=== PATIENT | female | born 1965 | race Caucasian/White ===

== ENCOUNTER 2018-03-18 22:24 | Emergency (ER) | payer SELFPAY ==
[~2018-03-18] VITALS: Ht 160 cm; Wt 54.0 kg
[2018-03-18 22:24] VITALS: BP 124/66
[~2018-03-18 22:24] MED LIST: NO MEDS
--- NOTE | 2018-03-18 22:34 | NUR ---
GAVE REPORT TO JR SUERO
--- NOTE | 2018-03-18 22:34 | NUR ---
PT AMBULATED TO BED 1
--- NOTE | 2018-03-18 22:35 | NUR ---
52YO F TO ER WITH C/O RIGHT RIB PAIN X1WK S/P FALL. PT STATES THAT SHE TRIPED AND FELL ON TO RIGHT SIDE. PT DENIES LOC OR HITTING HEAD PT STATES THAT SHE HAS BEEN TAKING IBUPROFEN FOR THE PAIN Q4-6 HRS. PT STATES TENDER TO TOUCH RIBS AND RIGHT ABD. LAST BM WAS 03/15/18. DENIES N/V/D, ; SKIN IS PINK/WARM/DRY; AAOX4 WITH EVEN AND STEADY GAIT; LUNGS CLEAR BL; HR EVEN AND HEAVY; PT DENIES ANY FEVER, CP, SOB, OR COUGH AT THIS TIME; PATIENT STATES PAIN OF 6/10 AT THIS TIME; VSS; PATIENT POSITIONED FOR COMFORT; HOB ELEVATED; BEDRAILS UP X2; BED DOWN. ER MD MADE AWARE OF PT STATUS.
--- NOTE | 2018-03-18 23:04 | NUR ---
XRAY AT BED SIDE
--- NOTE | 2018-03-18 23:39 | NUR ---
Patient being evaluated by physician at bedside.
[2018-03-19 00:05] VITALS: BP 114/81
--- NOTE | 2018-03-19 00:05 | NUR ---
Patient discharged with v/s stable. Written and verbal after care instructions given and explained. Patient alert, oriented and verbalized understanding of instructions. Ambulatory with steady gait. All questions addressed prior to discharge. ID band removed. Patient advised to follow up with PMD. Rx of IBUPROFEN 600MG given. Patient educated on indication of medication including possible reaction and side effects. Opportunity to ask questions provided and answered.
== END 2018-03-19 00:05 | disposition home or self-care (01) ==
LOC: MED 22:24
DX: S20.20XA Contusion of thorax, unspecified, initial encounter (principal); W19.XXXA Unspecified fall, initial encounter; Y93.01 Activity, walking, marching and hiking; Y92.480 Sidewalk as the place of occurrence of the external cause; Y99.8 Other external cause status
CPT/HCPCS: 71045; 81002; 81025; 99283; Q0092

== ENCOUNTER 2022-08-18 22:13 | Observation (INO) | payer OTHER ==
[~2022-08-18] VITALS: Ht 152.4 cm; Wt 60.3 kg
[~2022-08-18 22:13] MED LIST changes: -NO MEDS; +PANT40EC56 PO
[2022-08-18 22:31] VITALS: BP 141/74
--- NOTE | 2022-08-18 22:40 | NUR ---
PT TAKEN TO BED 1
--- NOTE | 2022-08-18 23:10 | NUR ---
Patient lying in bed, A/Ox4, chest rise and fall symmetrical, patient on monitor. Patient stated pain is "3/10 tolerable."
[2022-08-18 23:18] LABS: BASOPHILS # (AUTO) 0.1 K/uL (0.00-0.22); BASOPHILS % (AUTO) 1.2 % (0.0-2.0); EOSINOPHILS # (AUTO) 0.1 K/uL (0-0.4); EOSINOPHILS % (AUTO) 2.1 % (0.0-4.0); HEMOGLOBIN 7.7 g/dL (12.0-16.0); LYMPHOCYTES # (AUTO) 2.3 K/uL (2.5-16.5); LYMPHOCYTES % (AUTO) 39.3 % (20.5-51.1); MEAN CORPUSCULAR HEMOGLOBIN 25 pg (27-31); MEAN CORPUSCULAR HGB CONC 32 g/dL (33-37); MEAN CORPUSCULAR VOLUME 77.7 fL (80-94); MONOCYTES # (AUTO) 0.8 K/uL (0.8-1.0); MONOCYTES % (AUTO) 14.4 % (1.7-9.3); NEUTROPHILS # (AUTO) 2.5 K/uL (1.8-7.7); PLATELET COUNT (AUTO) 127 K/uL (140-450); RED BLOOD CELL COUNT(AUTO) 3.09 MIL/uL (4.20-5.40); RED CELL DISTRIBUTION WIDTH 20.4 % (11.6-13.7); WHITE BLOOD COUNT (AUTO) 5.9 K/uL (4.8-10.8)
[2022-08-18 23:49] LABS: ALBUMIN 2.4 g/dL (3.4-5.0); ANION GAP 12.4 (8-16); ASPARTATE AMINOTRANSFERASE 67 U/L (15-37); CARBON DIOXIDE 23.7 mmol/L (21-32); CHLORIDE 109 mmol/L (98-107); CREATININE 0.9 mg/dL (0.6-1.3); GFR ARICAN-AMERICAN 84 mL/min (>90); GLUCOSE 102 mg/dL (74-106); POTASSIUM 4.1 mmol/L (3.5-5.1); SODIUM SERUM 141 mmol/L (136-145); TOTAL BILIRUBIN 0.3 mg/dL (0.0-1.0); UREA NITROGEN, BLOOD 11 mg/dL (7-18)
--- NOTE | 2022-08-19 01:13 | NUR ---
Patient lying in bed, A/Ox4, chest rise and fall symmetrical, patient on monitor. Patient stated pain is "2/10 tolerable."
--- NOTE | 2022-08-19 03:12 | NUR ---
Denice SUERO, case fitter for [facility], called requesting admission information, requesting to know if patient is being admitted Observation or inpatent Telemetry. Information given to Denice SUERO, case fitter for [facility]. Denice SUERO, case fitter for [facility] verbalized understanding, no further questions.
--- NOTE | 2022-08-19 03:23 | NUR ---
Patient lying in bed, A/Ox4, chest rise and fall symmetrical, patient on monitor. Patient stated pain is "3/10 tolerable."
[2022-08-19] MEDS ORDERED: HYDROcodone/APAP 5/325 MG 1 TAB TAB PO PRN (03:40)
[2022-08-19] MEDS ORDERED: ONDANSETRON 4 MG/2 ML VIAL IVP PRN (03:40)
[2022-08-19] MEDS ORDERED: KCL 20 MEQ/WATER INJ PREMIX 200 ML IV PRN (03:40)
[2022-08-19] MEDS ORDERED: MORPHINE SULFATE 4 MG/ML SYR IVP PRN (03:40)
[2022-08-19] MEDS ORDERED: ACETAMINOPHEN 325 MG TAB PO PRN (03:40)
[2022-08-19] MEDS ORDERED: MAG SULF 2000 MG/WATER PREMIX 50 ML IV PRN (03:40)
[2022-08-19] MEDS ORDERED: MAGNESIUM OXIDE 400 MG TAB PO PRN (03:40)
[2022-08-19] MEDS ORDERED: POTASSIUM CHLORIDE 10 MEQ TABER PO PRN (03:40)
--- NOTE | 2022-08-19 05:45 | NUR ---
At 0540 patient was quietly lying in bed, A/Ox4, chest rise and fall symmetrical, patient is on monitor. Patient stated pain is "6/10." Patient requesting pain medication. [place] given to patient. No adverse reaction to pain medications.
--- NOTE | 2022-08-19 05:50 | NUR ---
RECEIVED PATIENT FROM ER , CAME IN VIA RNEY. AWAKE, ALERT AND VERBALLY RESPONSIVE. FEMALE, 56 YRS OLD PT CAME IN WITH CHIEF COMPLAINTS OF DIFFICULTY OF BREATHING, WEAKNESS AND DARK STOOL X 3 DAYS. PT WITH DIAGNOSIS OF ANEMIA, GI BLEEDS AND WEAKNESS. PT HAS NO ALLERGY AND SHE IS A FULL CODE. PT IS ABLE TO AMBULATES FROM [facility] TO HER BED OR RESTROOM INDEPENDENTLY. PT IS AAO X 4 AND IS A MEDSURG. SHE IS USING 2 LPM. IV SALINE LOCK AT LEFT AC 20G. SKIN INTACT AND WARM. DENIES OF NAUSEA OR VOMITING AT THIS TIME. SHE RECEIVES NORCO 5/325 AT 05:44 AT ER PRIOR TO COMING TO [facility]. CONTINUE TO MONITOR.
--- NOTE | 2022-08-19 05:55 | NUR ---
Patient admitted to care of Chriss SUERO. Admited to Telemetry. Safely transferred to room 120B. Belongings list completed. Bedside report given to Chriss SUERO, including; Alert and Orientation, Patient History/chief complaint/admitting diagnosis, Labs results, X-ray results, medications given, vital signs, and all other report information given. Chriss RN verbalized understanding of report, no further questions. Patient safely transferred to bed. Patient is A/Ox4, on 2L NC at 98% Oxygen saturation chest rise and fall symmetrical, no c/o pain or s/s of distress, 20G IV in LAC patent and saline flushed, patient on cardiac cath lab technologist, fall risk armband on, 3 bed rails up, and belongings accounted for and at patient's bedside.
[2022-08-19 07:00] VITALS: BP_SYST 113; BP_SYST 118; BP_DIAS 68; BP_DIAS 75
--- NOTE | 2022-08-19 07:20 | NUR ---
RECEIVED PT FROM NIGHT RN, PT IS AWAKE , ALERT AND ORIENTED, LYING ON THE BED WITH SIDE RAILS UP AND CALL LIGHT WITHIN REACH, IV LINE NOTED ON THE LEFT AC G. 20 ON SALINE LOCK, PT IS ON ROOM AIR, NO SIGN OF DISTRESS NOTED AND WILL CONTINUE TO MONITOR PT.
[2022-08-19 08:00] VITALS: BP 123/83
[2022-08-19 12:00] VITALS: BP 106/60
--- NOTE | 2022-08-19 13:43 | NUR ---
PATIENT HAS BEEN SCREENED AND CATEGORIZED LOW NUTRITION RISK. PATIENT WILL BE SEEN WITHIN 7 DAYS OF ADMISSION. 08/26/22 REVIEWED BY MIRIAM REYNOLDS RD
--- NOTE | 2022-08-19 15:30 | NUR ---
PT IS OFF THE ROOM NOW FOR A CHEST X-RAY.
[2022-08-19 16:00] VITALS: BP 119/70
--- NOTE | 2022-08-19 16:13 | NUR ---
PT WAS INSTRUCTED TO NOTIFY RN IS SHE URINATE BECAUSE MD ORDER FOR URINALYSIS AND URINE DRUG SCREEN AND PT VERBALIZED UNDERSTANDING.
[2022-08-19 17:52] LABS: APPEARANCE,URINE CLEAR (CLEAR); BILIRUBIN,URINE NEGATIVE (NEGATIVE); BLOOD, URINE NEGATIVE (NEGATIVE); COLOR,URINE YELLOW (YELLOW); LEUKOCYTE ESTERASE ,URINE 1+ (NEGATIVE); NITRITE, URINE NEGATIVE (NEGATIVE); UGLUCOSE NEGATIVE (NEGATIVE)
[2022-08-19 18:04] LABS: BARBITURATE, URINE NEGATIVE ng/ml (NEG <=200); BENZODIAZEPINE, URINE NEGATIVE ng/mL (NEG <=200); CANNABINOID, URINE NEGATIVE ng/mL (NEG <=50); COCAINE, URINE NEGATIVE ng/mL (NEG <=300); PHENCYCLIDINE SCREEN,URINE NEGATIVE ng/mL (NEG <=25)
[2022-08-19 18:05] LABS: OPIATE, URINE POSITIVE ng/mL (NEG <=2000)
[2022-08-19 18:09] LABS: OTHER CASTS, URINE None Seen /LPF (None Seen); RBC,URINE 0-5 /HPF (0-5)
--- NOTE | 2022-08-19 19:18 | NUR ---
ENDORSED PT TO NIGHT RN FOR CONTINUITY OF CARE, PT IS EATING DINNER WITH FRIEND ON THE BEDSIDE, PT IS STABLE AT THIS TIME.
--- NOTE | 2022-08-19 19:41 | NUR ---
RE VISIT PT - RT AT BEDSIDE - RT INCREASE THE O2 TO 4LPM/NC - O2 SAT 96 % , WILL CONT. TO MONITOR .
[2022-08-19 20:00] VITALS: BP 90/62
--- NOTE | 2022-08-19 21:56 | NUR ---
BP RE CHECK 90/62 HR 98 - WILL RETURN LASIX TO P[facility]XIS. WILL CONT. TO MONITOR . CALL LIGHT WITHIN REACH .
[2022-08-19] MEDS: FUROSEMIDE 20 MG/2 ML VIAL IVP SCH (22:00)
[2022-08-20] VITALS: BP 100/65
--- NOTE | 2022-08-20 | NUR ---
ROUNDS , NO S/SX OF ACUTE DISTRESS NOTED , BP RE CHECK 112/64 . WILL CONT. TO MONITOR , CALL LIGHT WITHIN REACH .
[2022-08-20 04:00] VITALS: BP 114/62
[2022-08-20 05:45] LABS: BASOPHILS % (AUTO) 0.9 % (0.0-2.0); EOSINOPHILS # (AUTO) 0.1 K/uL (0-0.4); EOSINOPHILS % (AUTO) 2.1 % (0.0-4.0); HEMATOCRIT 25.5 % (36-48); HEMOGLOBIN 7.9 g/dL (12.0-16.0); LYMPHOCYTES # (AUTO) 2.1 K/uL (2.5-16.5); LYMPHOCYTES % (AUTO) 43.6 % (20.5-51.1); MEAN CORPUSCULAR HEMOGLOBIN 25 pg (27-31); MEAN CORPUSCULAR HGB CONC 31 g/dL (33-37); MEAN CORPUSCULAR VOLUME 79.1 fL (80-94); MONOCYTES # (AUTO) 0.5 K/uL (0.8-1.0); MONOCYTES % (AUTO) 9.8 % (1.7-9.3); NEUTROPHILS # (AUTO) 2.1 K/uL (1.8-7.7); NEUTROPHILS % (AUTO) 43.6 % (42.2-75.2); PLATELET COUNT (AUTO) 121 K/uL (140-450); RED BLOOD CELL COUNT(AUTO) 3.22 MIL/uL (4.20-5.40); RED CELL DISTRIBUTION WIDTH 20.3 % (11.6-13.7); WHITE BLOOD COUNT (AUTO) 4.8 K/uL (4.8-10.8)
[2022-08-20 05:57] LABS: MAGNESIUM 2.1 mg/dL (1.8-2.4); PHOSPHORUS 3.9 mg/dL (2.5-4.9)
[2022-08-20 06:01] LABS: ANION GAP 10.2 (8-16); CARBON DIOXIDE 24.9 mmol/L (21-32); CREATININE 0.9 mg/dL (0.6-1.3); POTASSIUM 4.1 mmol/L (3.5-5.1)
--- NOTE | 2022-08-20 07:08 | NUR ---
RELAYED THE RESULT OF UDS AND URINALYSIS TO DR. KATE LUTHER .
--- NOTE | 2022-08-20 07:12 | NUR ---
ENDORSED FOR CONT. OF CARE , BP 114/ 65 , ENDORSED TO RODRIGO SHE HAVE TO FF UP THE FURTHER ORDERS FROM DR. AUGUSTIN , I RELAYED THE U/A AND UDS RESULT , RODRIGO VERBALIZES UNDERSTANDING .
[2022-08-20 08:00] VITALS: BP 120/67
--- NOTE | 2022-08-20 08:10 | NUR ---
SATURATION 97% ON 4L TITRATED TO 3L. A HERNANDEZ SRT
[2022-08-20] MEDS: FUROSEMIDE 20 MG/2 ML VIAL IVP SCH (08:35)
[2022-08-20] MEDS ORDERED: PANTOPRAZOLE 40 MG TABEC PO SCH (09:00)
[2022-08-20 12:00] VITALS: BP 146/68
--- NOTE | 2022-08-20 12:00 | NUR ---
DISCHARGE PLANNING: PATIENT IS A 56-YEAR-OLD FEMALE ADMITTED AT [facility]/ED ON 08/20/2022. DUE TO COMPLAINTS OF SYMPTOMATIC ANEMIA. PATIENT HAS NO SIGNIFICANT MEDICAL HISTORY. SW MEET WITH PATIENT AT BEDSIDE TO DISCUSS AND GATHER PATIENT'S COLLATERAL INFORMATION. PATIENT WAS AWAKE AND ALERT ABLE TO PROVIDE ALL HER INFORMATION. PATIENT REPORTED LIVING AT HOME WITH SOME ROOMMATES IN A HOUSE IN [facility]. PER PATIENT SHE HAS HER DAUGHTER SHALOM DONIS [phone] HER EMERGENCY CONTAC. PATIENT STATED THAT SHE DO NOT HAVE A.D. AND WAS NOT INTERESTED ON GETTING INF. PACKET PROVIDED BY SW. PATIENT STATED THAT SHE LACKS ON FAMILY SUPPORT; HOWEVER, HER DAUGHTER AND HER ROOMMATES ARE ABLE TO PROVIDE HER WITH ASSISTANCE WHEN SHE NEEDS IT. PATIENT STATED THAT SHE DO NOT HAVE COMMUNICATION WITH HER PCP AQUILES MESA DUE TO NEVER HAVING ISSUES WITH HER HEALTH AND NOT GOING TO THE DOCTOR IN 3-4 YEARS DUE TO NOT FEELING THE NEED TO SEE HER IF SHE DID NOT FEEL SICK. SW DISCUSSED WITH PATIENT THE IMPORTANCE OF FOLLOWING UP WITH HIS PRIMARY DOCTOR AFTER HE IS DISCHARGED FROM [facility] WITH IN 5-7 DAYS. PATIENT AGREED TO MAKE HER OWN FOLLOW UP APPOINTMENT AND AGREED TO MAKE HER OWN FOLLOW UP APPOINTMENT AND ATTEND AFTER SHE IS DISCHARGE FORM [facility]. PATIENT ALSO REPORTED NOT HAVING ANY ISSUES GETTING OR TAKING HER MEDICATIONS FROM HER LOCAL [facility] AT [address] IN [facility]. PATIENT ALSO REPORTED THAT SHE DO NOT HAVE OR NEED ANY DME. PATIENT REPORTED THAT WHEN SHE IS READY FOR DISCHARGE HER GIRLFRIEND OR ROOMMATE WILL BE PICKING HER UP FROM [facility] AND TAKE HER HOME. SW WILL FOLLOW UP NEEDED.
[2022-08-20] MEDS ORDERED: FURO-572 PO (15:15)
[2022-08-20 16:00] VITALS: BP 123/66
[2022-08-20 17:26] VITALS: BP 123/66
--- NOTE | 2022-08-20 18:23 | NUR ---
DISCHARGE PATIENT IN STABLE CONDITION PER PCP ORDER; DISCHARGE INSTRUCTION GIVEN, CONSENT SIGNED BY PATIENT, IV ACCESS & WRIST BAND REMOVED. PATIENT STATE THAT SHE GOES [facility]; AND PATIENT PLAN TO COME BACK [place] FOR [facility] (?). AROUND 1830, PATIENT'S COUSIN IS HERE AND NURSE WALK PATIENT AND HER COUSIN OUT THE FACILITY.
[2022-08-21 12:07] LABS: HEPATITIS B SURFACE ANTIBODY Non Reactive (.)
== END 2022-08-20 18:35 | disposition home or self-care (01) ==
LOC: MED 22:13 → MTU 08-19 03:43
PROVIDERS: ADMIT Internal Medicine; ATTEND Internal Medicine
DX: J90 Pleural effusion, not elsewhere classified (principal); Z20.822 Contact with and (suspected) exposure to COVID-19; J98.11 Atelectasis; K74.60 Unspecified cirrhosis of liver; K22.6 Gastro-esophageal laceration-hemorrhage syndrome; D50.0 Iron deficiency anemia secondary to blood loss (chronic); K92.2 Gastrointestinal hemorrhage, unspecified; D69.6 Thrombocytopenia, unspecified; F15.10 Other stimulant abuse, uncomplicated; Z79.899 Other long term (current) drug therapy
CPT/HCPCS: 36415; 71045; 71046; 74177; 80048; 80053; 80305; 81001; 83735; 83880; 84100; 84484; 85025; 86706; 86803; 87081; 87086; 87426; 93005; 94760; 96374; 96375; 99285; G0378; J1940; J2270; Q0092; Q9967

== ENCOUNTER 2023-02-01 13:27 | Emergency (ER) | payer MEDICAID, OTHER ==
[~2023-02-01] VITALS: Ht 152.4 cm; Wt 62.1 kg
[~2023-02-01 13:27] MED LIST changes: +FURO-572 PO
[2023-02-01 13:54] VITALS: BP 142/74
[2023-02-01 14:47] LABS: APPEARANCE,URINE CLEAR (CLEAR); BILIRUBIN,URINE 1+ (NEGATIVE); BLOOD, URINE NEGATIVE (NEGATIVE); COLOR,URINE YELLOW (YELLOW); LEUKOCYTE ESTERASE ,URINE NEGATIVE (NEGATIVE); NITRITE, URINE NEGATIVE (NEGATIVE); UGLUCOSE NEGATIVE (NEGATIVE)
[2023-02-01 15:04] LABS: BASOPHILS # (AUTO) 0.1 K/uL (0.00-0.22); BASOPHILS % (AUTO) 1.6 % (0.0-2.0); EOSINOPHILS # (AUTO) 0.1 K/uL (0-0.4); EOSINOPHILS % (AUTO) 1.6 % (0.0-4.0); HEMATOCRIT 32.3 % (36-48); HEMOGLOBIN 9.8 g/dL (12.0-16.0); LYMPHOCYTES # (AUTO) 1.7 K/uL (2.5-16.5); LYMPHOCYTES % (AUTO) 35.8 % (20.5-51.1); MEAN CORPUSCULAR HEMOGLOBIN 25 pg (27-31); MEAN CORPUSCULAR HGB CONC 30 g/dL (33-37); MEAN CORPUSCULAR VOLUME 81.3 fL (80-94); MONOCYTES # (AUTO) 0.7 K/uL (0.8-1.0); MONOCYTES % (AUTO) 15.7 % (1.7-9.3); NEUTROPHILS # (AUTO) 2.1 K/uL (1.8-7.7); NEUTROPHILS % (AUTO) 45.3 % (42.2-75.2); PLATELET COUNT (AUTO) 226 K/uL (140-450); RED BLOOD CELL COUNT(AUTO) 3.98 MIL/uL (4.20-5.40); RED CELL DISTRIBUTION WIDTH 24.2 % (11.6-13.7); WHITE BLOOD COUNT (AUTO) 4.7 K/uL (4.8-10.8)
[2023-02-01 15:26] LABS: ALBUMIN 2.1 g/dL (3.4-5.0); ANION GAP 12.4 (8-16); CARBON DIOXIDE 23.2 mmol/L (21-32); POTASSIUM 3.6 mmol/L (3.5-5.1); TOTAL BILIRUBIN 0.6 mg/dL (0.0-1.0)
[2023-02-01] MEDS ORDERED: FURO-572 PO (16:01)
[2023-02-01] MEDS ORDERED: FUROSEMIDE 20 MG TAB PO ONE (16:05)
[2023-02-01 16:34] VITALS: BP 118/65
--- NOTE | 2023-02-01 16:34 | NUR ---
Patient discharged with v/s stable. Written and verbal after care instructions given. Patient alert, oriented and verbalized understanding of instructions. Ambulatory with steady gait. All questions addressed prior to discharge. ID band removed. Patient advised to follow up with PMD. Rx of LASIX given. Opportunity to ask questions provided and answered.
== END 2023-02-01 16:34 | disposition home or self-care (01) ==
LOC: MED 13:27
DX: I50.9 Heart failure, unspecified (principal); R60.0 Localized edema; Z79.899 Other long term (current) drug therapy
CPT/HCPCS: 36415; 71045; 80053; 81003; 83880; 84484; 85025; 93005; 99285

== ENCOUNTER 2023-02-18 19:16 | Inpatient (IN) | payer MEDICAID ==
[~2023-02-18] VITALS: Ht 152.4 cm; Wt 62.6 kg
[2023-02-18 19:27] VITALS: BP 122/76
--- NOTE | 2023-02-18 19:28 | NUR ---
PT BIBA BLS ER BED 8 Addendum: 02/18/23 at 1930 by [facility] PT BIBA ALS ER BED 8
--- NOTE | 2023-02-18 19:51 | NUR ---
Lab by bedside
[2023-02-18 20:14] LABS: BASOPHILS % (AUTO) 0.7 % (0.0-2.0); EOSINOPHILS # (AUTO) 0.1 K/uL (0-0.4); HEMATOCRIT 29.8 % (36-48); HEMOGLOBIN 9.2 g/dL (12.0-16.0); LYMPHOCYTES # (AUTO) 2.2 K/uL (2.5-16.5); LYMPHOCYTES % (AUTO) 35.6 % (20.5-51.1); MEAN CORPUSCULAR HEMOGLOBIN 24 pg (27-31); MEAN CORPUSCULAR HGB CONC 31 g/dL (33-37); MEAN CORPUSCULAR VOLUME 78.4 fL (80-94); MONOCYTES # (AUTO) 0.8 K/uL (0.8-1.0); MONOCYTES % (AUTO) 12.9 % (1.7-9.3); NEUTROPHILS % (AUTO) 49.8 % (42.2-75.2); PLATELET COUNT (AUTO) 218 K/uL (140-450); RED CELL DISTRIBUTION WIDTH 22.1 % (11.6-13.7)
--- NOTE | 2023-02-18 20:27 | NUR ---
57YR OLD FEMALE BIB EMS C/0 SOB . PT STATES BEING SOB FOR A FEW DAYS. TODAY IT HAS GOTTEN WORSE. DENIES CP SP02 98% 2L NC. SKIN WARM AND DRY. DENIES FEVER V/N. HAS HAD DIARRHEA. PT HAD GALLSTONES SURGERY L1BFOZS AGO. ABD DISTENDED PAIN LEVEL 10/10. PT IS A&OX4. ON BEDSIDE FISHERIES OFFICER. NKDA \ COPD CHF HEP C CIRR OF LIVER
[2023-02-18 20:35] LABS: ANION GAP 8.6 (8-16); CARBON DIOXIDE 27.6 mmol/L (21-32); CREATININE 0.9 mg/dL (0.6-1.3); POTASSIUM 3.2 mmol/L (3.5-5.1); TOTAL BILIRUBIN 0.7 mg/dL (0.0-1.0)
[2023-02-18 22:02] LABS: APPEARANCE,URINE CLEAR (CLEAR); BILIRUBIN,URINE NEGATIVE (NEGATIVE); BLOOD, URINE NEGATIVE (NEGATIVE); COLOR,URINE YELLOW (YELLOW); LEUKOCYTE ESTERASE ,URINE NEGATIVE (NEGATIVE); NITRITE, URINE NEGATIVE (NEGATIVE); PH,URINE 5.5 (5.0-9.0); UGLUCOSE NEGATIVE (NEGATIVE)
[2023-02-18] MEDS ORDERED: AZITHROMYCIN 500 MG in DEXTROSE 5% 250 ML IV ONE (22:40)
[2023-02-18] MEDS ORDERED: cefTRIAXone 1,000 MG VIAL ONE (22:54)
--- NOTE | 2023-02-18 23:18 | NUR ---
FOOD PROVIDED TO PT . PENDING ADMIT ORDERS. PT AWARE OF ADMISSION TO HOSPITAL
[2023-02-18] MEDS ORDERED: SPIR50TA PO (23:21)
[2023-02-18] MEDS ORDERED: MORPHINE SULFATE 4 MG/ML SYR IVP ONE (23:35)
--- NOTE | 2023-02-18 23:39 | NUR ---
COVID SWAB COLLECTED AND SENT TO LAB
[2023-02-18] MEDS ORDERED: AZITHROMYCIN 500 MG INJ VIAL IV ONE (23:42)
--- NOTE | 2023-02-19 01:32 | NUR ---
PT BELONGINGS AND MED RECONCILE COMPLETED
--- NOTE | 2023-02-19 04:22 | NUR ---
REPORT GIVEN TO SIMBA SUERO
[2023-02-19 04:30] VITALS: BP 112/45
--- NOTE | 2023-02-19 04:30 | NUR ---
Patient's Plan of Care was discussed and reviewed with MIHAELA DOTSON:
--- NOTE | 2023-02-19 04:30 | NUR ---
PT TRANSPORTED FROM ER VIA GURNEY. RECEIVED REPORT FROM ER NURSE MATT FOR CONTINUITY OF CARE. PT A/A/O. AMBULATORY. ABLE TO MAKE NEEDS KNOWN. ON 2L NC WITH RESPIRATIONS EVEN AND UNLABORED. DENIES PAIN. NO DISTRESS NOTED. ATTACHED TO STAGE SETTINGS PAINTER. SKIN INTACT WARM AND DRY TO TOUCH. NOTED SCABS AND REDNESS ON ABD INCISION SITES. ABDOMEN DISTENDED AND HARD TO TOUCH. IV SITE ON RAC 20G, SL. PT ORIENTED TO ROOM, UNIT AND ROUTINE. V/S AND MRSA SWAB TAKEN. POC DISCUSSED. CALL LIGHT WITHIN REACH. SAFETY PRECAUTIONS IN PLACE.
--- NOTE | 2023-02-19 07:13 | NUR ---
GAVE BEDSIDE REPORT TO PIO BUSH FOR CONTINUITY OF CARE. PT IS STABLE.
--- NOTE | 2023-02-19 07:30 | NUR ---
RECEIVED PT CARE AND REPORT FROM SIMBA BROWN SHIFT NURSE. PT IS RESTING ON LEFT SIDE WITH BLANKET COVERING HEAD. SIMBA CALLED PATIENT AND SHE UNCOVERED HEAD. PT IS A&OX4, APPEARS CALM AND SLEEPY. NO VISIBLE S/S OF DISTRESS OR DISCOMFORT. DENIES ANY PAIN OR SOB AT THIS TIME. CALL LIGHT IS WITHIN REACH, ALL NEEDS MET AT THIS TIME.
[2023-02-19] MEDS ORDERED: ALBUTEROL 0.083% 2.5 MG/3 ML NEBU INH PRN (07:35)
[2023-02-19] MEDS ORDERED: ACETAMINOPHEN 325 MG TAB PO PRN (07:35)
[2023-02-19] MEDS ORDERED: LORazepam 2 MG/ML VIAL IVP PRN (07:35)
[2023-02-19] MEDS ORDERED: POTASSIUM CHLORIDE 10 MEQ TABER PO PRN (07:35)
[2023-02-19] MEDS ORDERED: ZOLPIDEM 10 MG TAB PO PRN (07:35)
[2023-02-19] MEDS ORDERED: DOCUSATE SODIUM 100 MG GELCAP PO PRN (07:35)
[2023-02-19] MEDS ORDERED: MAG SULF 2000 MG/WATER PREMIX 50 ML IV PRN (07:35)
[2023-02-19] MEDS ORDERED: ONDANSETRON 4 MG/2 ML VIAL IVP PRN (07:35)
[2023-02-19 08:00] VITALS: BP 104/55
[2023-02-19] MEDS: PANTOPRAZOLE 40 MG TABEC PO SCH (08:41)
[2023-02-19] MEDS: FUROSEMIDE 20 MG TAB PO SCH (08:42)
[2023-02-19] MEDS: SPIRONOLACTONE 25 MG TAB PO SCH (08:52)
--- NOTE | 2023-02-19 08:53 | NUR ---
TEXTED DR. SHAFER TO REPORT PATIENT'S CHOLECYSTECTOMY SURGEON NAME. DR. FORREST WAS THE SURGEON. ALSO REPORTED PT BP OF 104/55 AND ASKED ABOUT HOLDING ALDACTONE 50MG THIS MORNING. ADVISED BY DR. SHAFER TO HOLD MEDICATION FOR NOW.
--- NOTE | 2023-02-19 09:08 | NUR ---
PATIENT HAS BEEN SCREENED AND CATEGORIZED LOW NUTRITION RISK. PATIENT WILL BE SEEN WITHIN 7 DAYS OF ADMISSION. 02/26/23 REVIEWED BY MIRIAM REYNOLDS RD
[2023-02-19 12:00] VITALS: BP 110/53
--- NOTE | 2023-02-19 14:43 | NUR ---
REMOVED RIGHT AC IV D/T PAIN AND UNABLE TO FLUSH. CATHETER INTACT. SITE INTACT. STARTED NEW IV 20G ON TOP OF RIGHT WRIST X1 ATTEMPT. FLUSHED WITH NS AND SECURED.
[2023-02-19] MEDS ORDERED: METOCLOPRAMIDE 10 MG TAB PO PRN (15:40)
[2023-02-19 16:00] VITALS: BP 113/61
--- NOTE | 2023-02-19 18:35 | NUR ---
PT IS SITTING UP IN BED AND EATING BREAKFAST. A&OX4, APPEARS CALM. NO COMPLAINTS OF PAIN OR SOB AT THIS TIME. NO VISIBLE S/S OF DISTRESS OR DISCOMFORT. CALL LIGHT IS WITHIN REACH, ALL NEEDS HAVE BEEN MET AT THIS TIME AND THROUGHOUT SHIFT. WILL ENDORSE TO NOC SHIFT RN.
--- NOTE | 2023-02-19 19:09 | NUR ---
RECEIVED REPORT FROM DAY SHIFT NURSE FOR CONTINUITY OF CARE. PT IS AWAKE, A&O X4. PT IS AMBULATORY AND CONTINENT. CURRENTLY ON 2L NASAL CANULA WITH NO SIGNS OF ACUTE RESPIRATORY DISTRESS NOTED. PT COMPLAINING OF 10/10 PAIN AT SURGICAL SITE IN LOWER ABDOMEN. PT HAS IV SITE LOCATED AT RIGHT WRIST 20 GAUGE, INTACT AND PATENT. WILL MONITOR THE PT THROUGHOUT SHIFT. CALL LIGHT WITHIN REACH.
[2023-02-19 20:00] VITALS: BP 108/67
--- NOTE | 2023-02-19 20:00 | NUR ---
Patient's Plan of Care was discussed and reviewed with TENTER FRAME BACK TENDER: NADEGE JAMES
[2023-02-19] MEDS: MORPHINE SULFATE 2 MG/ML SYR IVP PRN (21:08)
--- NOTE | 2023-02-19 21:08 | NUR ---
POC DISCUSSED WITH RN: NICOLA. MORPHINE WAS ADMINISTERED BY RN: NICOLA FOR 10/10 PAIN, PT TOLERATED WELL, WILL CONTINUE TO MONITOR.
--- NOTE | 2023-02-19 23:01 | NUR ---
PT O2 SATURATION AT 86%. RAISED HOB AND INCREASED O2 TO 3 LITERS, NOW SATING AT 93%. WILL CONTINUE TO MONITOR THE PT.
--- NOTE | 2023-02-20 00:52 | NUR ---
PT ASLEEP AT THIS TIME. NOTICEABLE CHEST RISE AND FALL, RESPIRATIONS EVEN AND UNLABORED. O2 SAT 97% ON 3L NASAL CANULA. WILL CONTINUE TO MONITOR THE PT.
[2023-02-20 04:00] VITALS: BP 108/69
--- NOTE | 2023-02-20 06:38 | NUR ---
PT SLEPT WELL THROUGHOUT SHIFT. WILL ENDORSE TO DAY SHIFT NURSE IN STABLE CONDITION.
[2023-02-20 07:30] LABS: BASOPHILS % (AUTO) 0.8 % (0.0-2.0); EOSINOPHILS # (AUTO) 0.3 K/uL (0-0.4); EOSINOPHILS % (AUTO) 5.5 % (0.0-4.0); HEMATOCRIT 27.9 % (36-48); HEMOGLOBIN 8.5 g/dL (12.0-16.0); LYMPHOCYTES # (AUTO) 1.7 K/uL (2.5-16.5); LYMPHOCYTES % (AUTO) 34.7 % (20.5-51.1); MEAN CORPUSCULAR HEMOGLOBIN 24 pg (27-31); MEAN CORPUSCULAR HGB CONC 31 g/dL (33-37); MEAN CORPUSCULAR VOLUME 79.6 fL (80-94); MONOCYTES # (AUTO) 0.7 K/uL (0.8-1.0); MONOCYTES % (AUTO) 13.5 % (1.7-9.3); NEUTROPHILS # (AUTO) 2.2 K/uL (1.8-7.7); NEUTROPHILS % (AUTO) 45.5 % (42.2-75.2); PLATELET COUNT (AUTO) 200 K/uL (140-450); RED BLOOD CELL COUNT(AUTO) 3.51 MIL/uL (4.20-5.40); RED CELL DISTRIBUTION WIDTH 21.9 % (11.6-13.7); WHITE BLOOD COUNT (AUTO) 4.8 K/uL (4.8-10.8)
[2023-02-20 07:36] LABS: CREATININE 0.8 mg/dL (0.6-1.3); POTASSIUM 3.9 mmol/L (3.5-5.1)
--- NOTE | 2023-02-20 07:40 | NUR ---
RECEIVED PATIENT FROM PM NURSE FOR CONTINUATION OF CARE. PATIENT SEEN ON BED ASLEEP. NORMAL RISE AND FALL OF CHEST. CAREPLAN REVIEWED, PATIENT CARE RESUMED.
[2023-02-20 07:45] LABS: ANION GAP 8.6 (8-16); CARBON DIOXIDE 26.3 mmol/L (21-32)
[2023-02-20] MEDS: FUROSEMIDE 20 MG TAB PO SCH (08:50)
[2023-02-20] MEDS: PANTOPRAZOLE 40 MG TABEC PO SCH (08:50)
[2023-02-20] MEDS: SPIRONOLACTONE 25 MG TAB PO SCH (08:51)
[2023-02-20] MEDS ORDERED: ALBUMIN HUMAN 25% 50 ML IV SCH (09:00)
[2023-02-20] MEDS: MORPHINE SULFATE 2 MG/ML SYR IVP PRN ×3 (09:30→21:56)
[2023-02-20] MEDS: cefTRIAXone 2,000 MG in DEXTROSE 5% 100 ML IV SCH (12:00)
[2023-02-20 12:20] LABS: PROTHROMBIN TIME 12.8 secs (10.8-13.4)
[2023-02-20] MEDS: ALBUMIN HUMAN 25% 50 ML IV SCH (17:00)
--- NOTE | 2023-02-20 19:00 | NUR ---
ENDORSED PATIENT TO PM NURSE FOR CONTINUATION OF CARE.
--- NOTE | 2023-02-20 19:04 | NUR ---
RECEIVED REPORT FROM DAY SHIFT NURSE FOR CONTINUITY OF CARE. PT IS AWAKE, A&O X4. NO COMPLAINTS AT THIS TIME, NO ACUTE DISTRESS NOTED. NEW IV SITE LOCATED AT THE LEFT HAND, 24 GAUGE, INTACT AND PATENT. POC REVIEWED, CALL LIGHT WITHIN REACH, SAFETY MEASURES IN PLACE.
[2023-02-20 20:00] VITALS: BP 124/78
--- NOTE | 2023-02-20 21:55 | NUR ---
PT REPORTS PAIN LEVEL OF 10/10 IN LOWER ABDOMEN. POC WAS DISCUSSED WITH RN: NICOLA. MORPHINE ADMINISTERED PRN. PT TOLERATED WELL, WILL REASSESS IN ONE HOUR.
--- NOTE | 2023-02-20 22:55 | NUR ---
PT ASLEEP AT THIS TIME, NO SIGNS OF PHYSICAL DISTRESS/PAIN NOTED. WILL CONTINUE TO MONITOR.
[2023-02-21] MEDS: ALBUMIN HUMAN 25% 50 ML IV SCH ×3 (01:38→17:00)
[2023-02-21 04:15] VITALS: BP_SYST 108; BP_SYST 114; BP_DIAS 60; BP_DIAS 61
[2023-02-21 06:33] LABS: BASOPHILS # (AUTO) 0.1 K/uL (0.00-0.22); BASOPHILS % (AUTO) 1.1 % (0.0-2.0); EOSINOPHILS # (AUTO) 0.2 K/uL (0-0.4); EOSINOPHILS % (AUTO) 3.6 % (0.0-4.0); HEMATOCRIT 29.3 % (36-48); LYMPHOCYTES # (AUTO) 2.2 K/uL (2.5-16.5); LYMPHOCYTES % (AUTO) 36.4 % (20.5-51.1); MEAN CORPUSCULAR HEMOGLOBIN 24 pg (27-31); MEAN CORPUSCULAR HGB CONC 31 g/dL (33-37); MEAN CORPUSCULAR VOLUME 79.4 fL (80-94); MONOCYTES # (AUTO) 0.7 K/uL (0.8-1.0); MONOCYTES % (AUTO) 10.9 % (1.7-9.3); NEUTROPHILS # (AUTO) 2.9 K/uL (1.8-7.7); PLATELET COUNT (AUTO) 213 K/uL (140-450); RED BLOOD CELL COUNT(AUTO) 3.69 MIL/uL (4.20-5.40); RED CELL DISTRIBUTION WIDTH 21.7 % (11.6-13.7)
[2023-02-21 06:50] LABS: ANION GAP 8.8 (8-16); CREATININE 0.8 mg/dL (0.6-1.3); POTASSIUM 3.8 mmol/L (3.5-5.1)
--- NOTE | 2023-02-21 06:51 | NUR ---
PT SLEPT WELL THROUGHOUT SHIFT. WILL ENDORSE TO DAY SHIFT NURSE IN STABLE CONDITION.
--- NOTE | 2023-02-21 07:15 | NUR ---
RECEIVED ENDORSEMENT FROM NURSE FOR CONTINUITY OF CARE. PATIENT SEEN ASLEEP, IN BED WITH NORMAL RISE AND FALL OF CHEST.
[2023-02-21] MEDS: MORPHINE SULFATE 2 MG/ML SYR IVP PRN (08:31)
[2023-02-21] MEDS: PANTOPRAZOLE 40 MG TABEC PO SCH (08:51)
[2023-02-21] MEDS: FUROSEMIDE 20 MG TAB PO SCH (08:52)
[2023-02-21] MEDS: SPIRONOLACTONE 25 MG TAB PO SCH (08:52)
[2023-02-21] MEDS: cefTRIAXone 2,000 MG in DEXTROSE 5% 100 ML IV SCH (12:00)
--- NOTE | 2023-02-21 15:45 | NUR ---
PATIENT IV INFILTRATED. NOT ABLE TO GIVE HUMAN ALBUMIN TPB MEDICATION. Addendum: 02/21/23 at 1905 by JAVIER OGDEN RN TIME INCORRECT. CORRECT TIME OF NOTE IS 0243
--- NOTE | 2023-02-21 18:30 | NUR ---
UNABLE TO GET AN IV SITE FOR PATIENT. WILL ENDORSE TO PM SHIFT NURSE.
--- NOTE | 2023-02-21 19:06 | NUR ---
PATIENT SEEN ON BED. AWAKE, TALKING WITH ROOM MATE. CLOSING REMARKS DONE WITH PATIENT AND UPDATES ON PATIENT WILL BE ENDORSED TO PM NURSE.
[2023-02-21 20:00] VITALS: BP 105/53
[2023-02-21 20:15] VITALS: BP 105/53
--- NOTE | 2023-02-22 03:49 | NUR ---
photo of abdomen taken. no open wounds noted. pt has three dime-sized dry spots on camera that appear in process of healing.
[2023-02-22 04:15] VITALS: BP 108/61
--- NOTE | 2023-02-22 07:15 | NUR ---
RECEIVED REPORT FROM AUDI SUERO FOR CONTINUITY OF CARE. INITIAL ASSESSMENT DONE. ALERT AND ORIENTED X4. RESP. ECEN AND UNLABORED. ON ROOM AIR. IVF SITE INTACT TO RAC, ON SALINE LOCK. NO C/O PAIN OR DISCOMFORT. CALL LIGHT KEPT WITHIN REACH. WILL CONTINUE TO MONITOR.
[2023-02-22 07:25] LABS: BASOPHILS % (AUTO) 0.9 % (0.0-2.0); EOSINOPHILS # (AUTO) 0.1 K/uL (0-0.4); EOSINOPHILS % (AUTO) 2.9 % (0.0-4.0); HEMATOCRIT 27.8 % (36-48); HEMOGLOBIN 8.6 g/dL (12.0-16.0); LYMPHOCYTES # (AUTO) 1.8 K/uL (2.5-16.5); LYMPHOCYTES % (AUTO) 36.5 % (20.5-51.1); MEAN CORPUSCULAR HEMOGLOBIN 24 pg (27-31); MEAN CORPUSCULAR HGB CONC 31 g/dL (33-37); MEAN CORPUSCULAR VOLUME 78.4 fL (80-94); MONOCYTES # (AUTO) 0.7 K/uL (0.8-1.0); MONOCYTES % (AUTO) 13.7 % (1.7-9.3); NEUTROPHILS # (AUTO) 2.3 K/uL (1.8-7.7); PLATELET COUNT (AUTO) 209 K/uL (140-450); RED BLOOD CELL COUNT(AUTO) 3.54 MIL/uL (4.20-5.40); RED CELL DISTRIBUTION WIDTH 22.2 % (11.6-13.7); WHITE BLOOD COUNT (AUTO) 5.1 K/uL (4.8-10.8)
[2023-02-22 07:41] LABS: ANION GAP 9.2 (8-16); CARBON DIOXIDE 25.4 mmol/L (21-32); CREATININE 0.8 mg/dL (0.6-1.3); POTASSIUM 3.6 mmol/L (3.5-5.1)
[2023-02-22 08:00] VITALS: BP 121/63
[2023-02-22] MEDS: SPIRONOLACTONE 25 MG TAB PO SCH (09:19)
[2023-02-22] MEDS: PANTOPRAZOLE 40 MG TABEC PO SCH (09:19)
[2023-02-22] MEDS: FUROSEMIDE 20 MG TAB PO SCH (09:19)
--- NOTE | 2023-02-22 09:19 | NUR ---
SCHEDULED MEDICATIONS GIVEN. TOLERATED WELL.
[2023-02-22] MEDS ORDERED: FURO-572 PO (10:26)
[2023-02-22] MEDS ORDERED: SPIR50TA PO (10:26)
[2023-02-22] MEDS ORDERED: CEPH-588 PO (10:26)
--- NOTE | 2023-02-22 13:08 | NUR ---
PARACENTESIS COMPLETED. 3,950 REMOVED. TOLERATED WELL. NO C/O PAIN OR DISCOMFORT.
[2023-02-22] MEDS: cefTRIAXone 2,000 MG in DEXTROSE 5% 100 ML IV SCH (14:00)
--- NOTE | 2023-02-22 14:00 | NUR ---
ROCEPHIN IV GIVEN BY ELIZABETH SUERO. TOLERATED WELL.
--- NOTE | 2023-02-22 17:45 | NUR ---
PT LEFT. DISCHARGE TO HOME. TRANSPORTED BY [facility] PER WHEELCHAIR. ALERT AND ORIENTED X 4. RESP. EVEN AND UNLABORED. SKIN INTACT. DISCHARGE PAPERWORK, SIGNED AND DISCUSS BY PT. PERSONAL BELONGINGS TAKEN. ID BAND AND IV REMOVED. REMAINS STABLE.
== END 2023-02-22 17:45 | disposition home or self-care (01) | DRG 720 ==
LOC: MED 19:16 → MTU 02-19 01:28
PROVIDERS: ADMIT Family Medicine; ATTEND Family Medicine
PROC: 0W9G3ZZ Drainage of Peritoneal Cavity, Percutaneous Approach (ICD-10-PCS; principal; 2023-02-22)
DX: A41.9 Sepsis, unspecified organism (principal); J96.00 Acute respiratory failure, unspecified whether with hypoxia or hypercapnia; J69.0 Pneumonitis due to inhalation of food and vomit; E43 Unspecified severe protein-calorie malnutrition; E87.3 Alkalosis; R18.8 Other ascites; E83.51 Hypocalcemia; I50.9 Heart failure, unspecified; I11.0 Hypertensive heart disease with heart failure; K74.60 Unspecified cirrhosis of liver; Z20.822 Contact with and (suspected) exposure to COVID-19; B18.2 Chronic viral hepatitis C; E87.6 Hypokalemia; R74.01 Elevation of levels of liver transaminase levels; D64.9 Anemia, unspecified; Z90.49 Acquired absence of other specified parts of digestive tract; Z79.84 Long term (current) use of oral hypoglycemic drugs; Z79.899 Other long term (current) drug therapy; Z68.27 Body mass index [BMI] 27.0-27.9, adult
CPT/HCPCS: 36415; 36600; 49083; 71045; 76700; 80048; 80053; 81003; 82803; 83605; 83735; 85025; 85610; 85730; 87040; 87070; 87075; 87081; 87086; 93005; 94640; 96365; 96367; 96375; 99285; J0456; J0696; J2001; J2270; J7060; J7613; P9046; Q0092

== ENCOUNTER 2023-03-02 18:06 | Emergency (ER) | payer MEDICAID ==
[~2023-03-02] VITALS: Ht 152.4 cm; Wt 60.8 kg
[2023-03-02 18:06] VITALS: BP 112/63
[~2023-03-02 18:06] MED LIST changes: +CEPH-588 PO; +SPIR50TA PO
--- NOTE | 2023-03-02 18:06 | NUR ---
BIBA BLS TO ER BED 7
[2023-03-02 18:25] VITALS: BP 116/63
[2023-03-02 18:53] LABS: BASOPHILS # (AUTO) 0.1 K/uL (0.00-0.22); BASOPHILS % (AUTO) 1.2 % (0.0-2.0); EOSINOPHILS # (AUTO) 0.1 K/uL (0-0.4); EOSINOPHILS % (AUTO) 2.1 % (0.0-4.0); HEMATOCRIT 31.7 % (36-48); HEMOGLOBIN 9.7 g/dL (12.0-16.0); LYMPHOCYTES % (AUTO) 34.4 % (20.5-51.1); MEAN CORPUSCULAR HEMOGLOBIN 24 pg (27-31); MEAN CORPUSCULAR HGB CONC 31 g/dL (33-37); MEAN CORPUSCULAR VOLUME 77.6 fL (80-94); MONOCYTES # (AUTO) 0.8 K/uL (0.8-1.0); MONOCYTES % (AUTO) 13.4 % (1.7-9.3); NEUTROPHILS # (AUTO) 2.8 K/uL (1.8-7.7); NEUTROPHILS % (AUTO) 48.9 % (42.2-75.2); PLATELET COUNT (AUTO) 271 K/uL (140-450); RED BLOOD CELL COUNT(AUTO) 4.09 MIL/uL (4.20-5.40); RED CELL DISTRIBUTION WIDTH 21.4 % (11.6-13.7); WHITE BLOOD COUNT (AUTO) 5.8 K/uL (4.8-10.8)
[2023-03-02 19:19] LABS: BILIRUBIN,URINE NEGATIVE (NEGATIVE); BLOOD, URINE NEGATIVE (NEGATIVE); COLOR,URINE YELLOW (YELLOW); LEUKOCYTE ESTERASE ,URINE 1+ (NEGATIVE); NITRITE, URINE NEGATIVE (NEGATIVE); UGLUCOSE NEGATIVE (NEGATIVE)
[2023-03-02 19:20] LABS: ALBUMIN 2.6 g/dL (3.4-5.0); ANION GAP 7.7 (8-16); CARBON DIOXIDE 27.7 mmol/L (21-32); CREATININE 0.8 mg/dL (0.6-1.3); POTASSIUM 3.4 mmol/L (3.5-5.1); TOTAL BILIRUBIN 0.7 mg/dL (0.0-1.0)
--- NOTE | 2023-03-02 19:30 | NUR ---
assumed care for pt, pt awake and alert and resting in room respirations even and unlabored
[2023-03-02 19:34] LABS: APPEARANCE,URINE HAZY (CLEAR)
[2023-03-02 19:38] LABS: RBC,URINE NONE SEEN /HPF (0-5)
[2023-03-02] MEDS ORDERED: KETOROLAC 60 MG/2 ML VIAL IM ONE (21:20)
--- NOTE | 2023-03-02 21:21 | NUR ---
Dr. Sommers explained results and treatment plans.
[2023-03-02] MEDS ORDERED: LID5T TP (21:22)
[2023-03-02] MEDS ORDERED: NAPR-1704 PO (21:22)
--- NOTE | 2023-03-02 21:55 | NUR ---
Patient discharged with v/s stable. Written and verbal after care instructions given and explained. Patient alert, oriented and verbalized understanding of instructions. Ambulatory with steady gait. All questions addressed prior to discharge. ID band removed. Patient advised to follow up with PMD. Rx of lidocaine hyd and naproxen given. Opportunity to ask questions provided and answered. Dr. Sommers's orders reinforced
== END 2023-03-02 21:55 | disposition home or self-care (01) ==
LOC: MED 18:06
DX: R07.89 Other chest pain (principal); Z20.822 Contact with and (suspected) exposure to COVID-19; R10.13 Epigastric pain; R06.02 Shortness of breath; I10 Essential (primary) hypertension; Z79.899 Other long term (current) drug therapy; Z90.49 Acquired absence of other specified parts of digestive tract
CPT/HCPCS: 36415; 71045; 80053; 81001; 83690; 83880; 84484; 85025; 85610; 85730; 87040; 87086; 87426; 96372; 99284; J1885

== ENCOUNTER 2023-03-15 18:46 | Inpatient (IN) | payer MEDICAID ==
[~2023-03-15] VITALS: Ht 162.6 cm; Wt 62.2 kg
[~2023-03-15 18:46] MED LIST changes: +LID5T TP; +NAPR-1704 PO
[2023-03-15 19:13] VITALS: BP 148/85
[2023-03-15 21:06] LABS: BASOPHILS % (AUTO) 0.9 % (0.0-2.0); EOSINOPHILS # (AUTO) 0.1 K/uL (0-0.4); EOSINOPHILS % (AUTO) 1.5 % (0.0-4.0); HEMATOCRIT 29.5 % (36-48); HEMOGLOBIN 9.1 g/dL (12.0-16.0); LYMPHOCYTES % (AUTO) 36.3 % (20.5-51.1); MEAN CORPUSCULAR HEMOGLOBIN 24 pg (27-31); MEAN CORPUSCULAR HGB CONC 31 g/dL (33-37); MEAN CORPUSCULAR VOLUME 76.7 fL (80-94); MONOCYTES # (AUTO) 0.4 K/uL (0.8-1.0); MONOCYTES % (AUTO) 6.3 % (1.7-9.3); NEUTROPHILS # (AUTO) 3.1 K/uL (1.8-7.7); PLATELET COUNT (AUTO) 250 K/uL (140-450); RED BLOOD CELL COUNT(AUTO) 3.84 MIL/uL (4.20-5.40); WHITE BLOOD COUNT (AUTO) 5.6 K/uL (4.8-10.8)
[2023-03-15 21:26] LABS: ALBUMIN 2.4 g/dL (3.4-5.0); CARBON DIOXIDE 24.9 mmol/L (21-32); CREATININE 0.8 mg/dL (0.6-1.3); POTASSIUM 3.9 mmol/L (3.5-5.1); TOTAL BILIRUBIN 0.9 mg/dL (0.0-1.0)
[2023-03-15 23:14] LABS: APPEARANCE,URINE CLEAR (CLEAR); BILIRUBIN,URINE NEGATIVE (NEGATIVE); BLOOD, URINE NEGATIVE (NEGATIVE); COLOR,URINE YELLOW (YELLOW); LEUKOCYTE ESTERASE ,URINE TRACE (NEGATIVE); NITRITE, URINE NEGATIVE (NEGATIVE); PH,URINE 5.5 (5.0-9.0); UGLUCOSE NEGATIVE (NEGATIVE)
[2023-03-16] MEDS ORDERED: FUROSEMIDE 40 MG/4 ML VIAL IVP STA (01:53)
[2023-03-16] MEDS ORDERED: HYDROcodone/APAP 5/325 MG 1 TAB TAB PO PRN ×2 (02:00)
[2023-03-16] MEDS ORDERED: ONDANSETRON 4 MG/2 ML VIAL IVP PRN (02:00)
[2023-03-16] MEDS ORDERED: ACETAMINOPHEN 325 MG TAB PO PRN (02:00)
[2023-03-16] MEDS ORDERED: LORazepam 1 MG TAB PO PRN ×2 (02:05)
[2023-03-16 08:00] VITALS: BP 123/117
[2023-03-16] MEDS: ENOXAPARIN 40 MG/0.4 ML SYR SUBQ SCH (09:00)
[2023-03-16] MEDS: THIAMINE 100 MG TAB PO SCH (09:42)
[2023-03-16 10:03] LABS: BASOPHILS % (AUTO) 0.4 % (0.0-2.0); EOSINOPHILS # (AUTO) 0.1 K/uL (0-0.4); EOSINOPHILS % (AUTO) 2.1 % (0.0-4.0); HEMATOCRIT 27.3 % (36-48); HEMOGLOBIN 8.3 g/dL (12.0-16.0); LYMPHOCYTES % (AUTO) 36.3 % (20.5-51.1); MEAN CORPUSCULAR HEMOGLOBIN 23 pg (27-31); MEAN CORPUSCULAR HGB CONC 30 g/dL (33-37); MEAN CORPUSCULAR VOLUME 76.8 fL (80-94); MONOCYTES # (AUTO) 0.6 K/uL (0.8-1.0); MONOCYTES % (AUTO) 10.4 % (1.7-9.3); NEUTROPHILS # (AUTO) 2.8 K/uL (1.8-7.7); NEUTROPHILS % (AUTO) 50.8 % (42.2-75.2); PLATELET COUNT (AUTO) 220 K/uL (140-450); RED BLOOD CELL COUNT(AUTO) 3.55 MIL/uL (4.20-5.40); RED CELL DISTRIBUTION WIDTH 22.2 % (11.6-13.7); WHITE BLOOD COUNT (AUTO) 5.5 K/uL (4.8-10.8)
[2023-03-16 10:25] LABS: ANION GAP 11.4 (8-16); CARBON DIOXIDE 23.1 mmol/L (21-32); CREATININE 0.8 mg/dL (0.6-1.3); POTASSIUM 3.5 mmol/L (3.5-5.1)
[2023-03-16 10:31] LABS: MAGNESIUM 1.6 mg/dL (1.8-2.4); PHOSPHORUS 3.3 mg/dL (2.5-4.9)
[2023-03-16 14:32] LABS: PROTHROMBIN TIME 12.8 secs (10.8-13.4)
[2023-03-16 16:00] VITALS: BP 122/74
[2023-03-16 20:00] VITALS: BP 116/72
[2023-03-17] VITALS: BP 115/69
[2023-03-17 04:00] VITALS: BP 118/71
[2023-03-17 07:02] LABS: BASOPHILS % (AUTO) 1.1 % (0.0-2.0); CARBON DIOXIDE 24.5 mmol/L (21-32); CREATININE 0.9 mg/dL (0.6-1.3); EOSINOPHILS # (AUTO) 0.1 K/uL (0-0.4); EOSINOPHILS % (AUTO) 2.3 % (0.0-4.0); HEMATOCRIT 25.7 % (36-48); HEMOGLOBIN 7.9 g/dL (12.0-16.0); LYMPHOCYTES # (AUTO) 1.9 K/uL (2.5-16.5); LYMPHOCYTES % (AUTO) 43.5 % (20.5-51.1); MEAN CORPUSCULAR HEMOGLOBIN 24 pg (27-31); MEAN CORPUSCULAR HGB CONC 31 g/dL (33-37); MEAN CORPUSCULAR VOLUME 77.3 fL (80-94); MONOCYTES # (AUTO) 0.4 K/uL (0.8-1.0); NEUTROPHILS # (AUTO) 1.9 K/uL (1.8-7.7); NEUTROPHILS % (AUTO) 43.1 % (42.2-75.2); PLATELET COUNT (AUTO) 196 K/uL (140-450); POTASSIUM 3.5 mmol/L (3.5-5.1); RED BLOOD CELL COUNT(AUTO) 3.33 MIL/uL (4.20-5.40); WHITE BLOOD COUNT (AUTO) 4.5 K/uL (4.8-10.8)
[2023-03-17 07:08] LABS: MAGNESIUM 1.6 mg/dL (1.8-2.4); PHOSPHORUS 3.3 mg/dL (2.5-4.9)
[2023-03-17 08:00] VITALS: BP 108/63
[2023-03-17] MEDS: ENOXAPARIN 40 MG/0.4 ML SYR SUBQ SCH (09:00)
[2023-03-17] MEDS ORDERED: MAG SULF 2000 MG/WATER PREMIX 50 ML IV SCH (09:00)
[2023-03-17] MEDS: THIAMINE 100 MG TAB PO SCH (09:44)
[2023-03-17 12:00] VITALS: BP 103/48
[2023-03-17 14:02] VITALS: BP 103/48
[2023-03-17 14:48] LABS: APPEARANCE,SPUN,BODY FLUID HAZY (CLEAR); APPEARANCE,UNSPUN,BODY FLUID CLOUDY (CLEAR); COLOR,BODY FLUID YELLOW (LT YELLOW); RBC, BODY FLUID 0 /cu. mm.; SPECIMENTYPE,BODY FLUID PARACENTESIS; TOTAL VOLUME,BODY FLUID 1900 mL; WBC, BODY FLUID 400 /cu. mm.
[2023-03-17 14:49] LABS: POLYNUCLEAR, BODY FLUID 70 %
[2023-03-17 15:11] LABS: GLUCOSE,BODY FLUID 95 mg/dL
[2023-03-17 16:00] VITALS: BP 110/58
== END 2023-03-17 20:05 | disposition home or self-care (01) ==
LOC: MED 18:46 → MMU 03-16 02:00 → MTU 03-16 03:17
PROVIDERS: ADMIT Internal Medicine; ATTEND Internal Medicine
PROC: 0W9G30Z Drainage of Peritoneal Cavity with Drainage Device, Percutaneous Approach (ICD-10-PCS; principal; 2023-03-17)
DX: K74.60 Unspecified cirrhosis of liver (principal); J96.01 Acute respiratory failure with hypoxia; I50.33 Acute on chronic diastolic (congestive) heart failure; E43 Unspecified severe protein-calorie malnutrition; R18.8 Other ascites; I27.20 Pulmonary hypertension, unspecified; R65.10 Systemic inflammatory response syndrome (SIRS) of non-infectious origin without acute organ dysfunction; E83.51 Hypocalcemia; D64.9 Anemia, unspecified; B19.20 Unspecified viral hepatitis C without hepatic coma; Z20.822 Contact with and (suspected) exposure to COVID-19; E83.42 Hypomagnesemia; Z68.23 Body mass index [BMI] 23.0-23.9, adult; I11.0 Hypertensive heart disease with heart failure
CPT/HCPCS: 36415; 49083; 71045; 71275; 76705; 80048; 80053; 81003; 82140; 82945; 83605; 83735; 83880; 84100; 84157; 85025; 85379; 85610; 85730; 87040; 87070; 87075; 87081; 87205; 89051; 96374; 99285; J1940; J2001; J3475; Q0092; Q9967

== ENCOUNTER 2023-04-12 21:43 | Inpatient (IN) | payer MEDICAID ==
[~2023-04-12] VITALS: Ht 152.4 cm; Wt 56.2 kg
[~2023-04-12 21:43] MED LIST changes: -CEPH-588 PO
[2023-04-12 21:59] VITALS: BP 133/74; PULSE 86; RESP 16; TEMP 98.1; O2SAT 98
--- NOTE | 2023-04-12 22:45 | NUR ---
57 Y/O F presents with chest pain 8/10 x 1week with pressure and itching all over body. pt stated some NV denies diarrhea. pt A&Ox4, skin intact, respirations even and unlabored, ambulatory. pmh- CHF, hep C, cirrhosis NKA
[2023-04-12 23:18] LABS: BASOPHILS # (AUTO) 0.1 K/uL (0.00-0.22); BASOPHILS % (AUTO) 1.2 % (0.0-2.0); EOSINOPHILS # (AUTO) 0.6 K/uL (0-0.4); EOSINOPHILS % (AUTO) 11.3 % (0.0-4.0); HEMATOCRIT 29.5 % (36-48); HEMOGLOBIN 8.9 g/dL (12.0-16.0); LYMPHOCYTES # (AUTO) 2.2 K/uL (2.5-16.5); LYMPHOCYTES % (AUTO) 40.1 % (20.5-51.1); MEAN CORPUSCULAR HEMOGLOBIN 23 pg (27-31); MEAN CORPUSCULAR HGB CONC 30 g/dL (33-37); MEAN CORPUSCULAR VOLUME 77.2 fL (80-94); MONOCYTES # (AUTO) 0.6 K/uL (0.8-1.0); MONOCYTES % (AUTO) 11.1 % (1.7-9.3); NEUTROPHILS # (AUTO) 1.9 K/uL (1.8-7.7); NEUTROPHILS % (AUTO) 36.3 % (42.2-75.2); PLATELET COUNT (AUTO) 175 K/uL (140-450); RED BLOOD CELL COUNT(AUTO) 3.82 MIL/uL (4.20-5.40); RED CELL DISTRIBUTION WIDTH 22.5 % (11.6-13.7); WHITE BLOOD COUNT (AUTO) 5.4 K/uL (4.8-10.8)
[2023-04-12 23:43] LABS: ALBUMIN 2.5 g/dL (3.4-5.0); ANION GAP 11.4 (8-16); ASPARTATE AMINOTRANSFERASE 119 U/L (15-37); CARBON DIOXIDE 24.4 mmol/L (21-32); CHLORIDE 109 mmol/L (98-107); CREATININE 0.9 mg/dL (0.6-1.3); GFR ARICAN-AMERICAN 83 mL/min (>90); GLUCOSE 82 mg/dL (74-106); POTASSIUM 3.8 mmol/L (3.5-5.1); SODIUM SERUM 141 mmol/L (136-145); UREA NITROGEN, BLOOD 14 mg/dL (7-18)
[2023-04-13 00:21] LABS: TOTAL BILIRUBIN 0.7 mg/dL (0.0-1.0)
[2023-04-13] MEDS ORDERED: ZOLPIDEM 5 MG TAB PO PRN (01:20)
[2023-04-13] MEDS ORDERED: ACETAMINOPHEN 325 MG TAB PO PRN (01:20)
[2023-04-13] MEDS ORDERED: POTASSIUM CHLORIDE 10 MEQ TABER PO PRN (01:20)
[2023-04-13] MEDS ORDERED: HYDROcodone/APAP 7.5/325 MG 1 TAB PO PRN (01:20)
[2023-04-13] MEDS ORDERED: guaiFENesin DM 200/20 MG-10 ML 10 ML UDC PO PRN (01:20)
[2023-04-13] MEDS ORDERED: NACL 0.9% 1,000 ML IV SCH (01:20)
[2023-04-13] MEDS ORDERED: DOCUSATE SODIUM 100 MG GELCAP PO PRN (01:20)
[2023-04-13] MEDS ORDERED: ONDANSETRON 4 MG/2 ML VIAL IM/IVP PRN (01:20)
--- NOTE | 2023-04-13 01:47 | NUR ---
X-Ray at bedside.
[2023-04-13 02:17] LABS: PROTHROMBIN TIME 13.7 secs (10.8-13.4)
[2023-04-13 02:43] VITALS: O2SAT 92
--- NOTE | 2023-04-13 02:43 | NUR ---
UA collected and sent to lab
[2023-04-13 02:55] LABS: APPEARANCE,URINE SL CLOUDY (CLEAR); BILIRUBIN,URINE NEGATIVE (NEGATIVE); BLOOD, URINE NEGATIVE (NEGATIVE); COLOR,URINE YELLOW (YELLOW); LEUKOCYTE ESTERASE ,URINE 3+ (NEGATIVE); NITRITE, URINE NEGATIVE (NEGATIVE); PH,URINE 6.5 (5.0-9.0); UGLUCOSE NEGATIVE (NEGATIVE)
[2023-04-13 03:05] LABS: RBC,URINE 0-5 /HPF (0-5)
[2023-04-13 03:07] LABS: BARBITURATE, URINE NEGATIVE ng/ml (NEG <=200); BENZODIAZEPINE, URINE NEGATIVE ng/mL (NEG <=200); CANNABINOID, URINE NEGATIVE ng/mL (NEG <=50); COCAINE, URINE NEGATIVE ng/mL (NEG <=300); OPIATE, URINE NEGATIVE ng/mL (NEG <=2000); PHENCYCLIDINE SCREEN,URINE NEGATIVE ng/mL (NEG <=25)
[2023-04-13 06:43] LABS: ANION GAP 11.4 (8-16); CARBON DIOXIDE 20.6 mmol/L (21-32); CREATININE 0.7 mg/dL (0.6-1.3); TOTAL BILIRUBIN 0.8 mg/dL (0.0-1.0)
[2023-04-13 06:51] VITALS: O2SAT 90
[2023-04-13 07:05] LABS: BASOPHILS # (AUTO) 0.1 K/uL (0.00-0.22); BASOPHILS % (AUTO) 1.2 % (0.0-2.0); EOSINOPHILS # (AUTO) 0.6 K/uL (0-0.4); HEMATOCRIT 27.3 % (36-48); HEMOGLOBIN 8.4 g/dL (12.0-16.0); LYMPHOCYTES # (AUTO) 2.1 K/uL (2.5-16.5); LYMPHOCYTES % (AUTO) 42.3 % (20.5-51.1); MEAN CORPUSCULAR HEMOGLOBIN 25 pg (27-31); MEAN CORPUSCULAR HGB CONC 31 g/dL (33-37); MEAN CORPUSCULAR VOLUME 80.1 fL (80-94); MONOCYTES # (AUTO) 0.6 K/uL (0.8-1.0); MONOCYTES % (AUTO) 11.7 % (1.7-9.3); NEUTROPHILS # (AUTO) 1.6 K/uL (1.8-7.7); NEUTROPHILS % (AUTO) 31.8 % (42.2-75.2); PLATELET COUNT (AUTO) 159 K/uL (140-450); RED BLOOD CELL COUNT(AUTO) 3.41 MIL/uL (4.20-5.40); RED CELL DISTRIBUTION WIDTH 22.5 % (11.6-13.7)
--- NOTE | 2023-04-13 07:24 | NUR ---
Pt report given to Priscila DOTSON. Transfer of care at this time.
--- NOTE | 2023-04-13 07:28 | NUR ---
REPORT RECEIVED FROM PIPO DOTSON. ASSUMED CARE AT THIS TIME
--- NOTE | 2023-04-13 08:59 | NUR ---
PATIENT HAS BEEN SCREENED AND CATEGORIZED MODERATE NUTRITION RISK. PATIENT WILL BE SEEN WITHIN 3-5 DAYS OF ADMISSION. 04/16/23-04/18/[address]
[2023-04-13] MEDS ORDERED: SPIRONOLACTONE 50 MG TAB PO SCH (09:00)
[2023-04-13] MEDS ORDERED: PANTOPRAZOLE 40 MG TABEC PO SCH ×2 (09:00)
[2023-04-13] MEDS ORDERED: FUROSEMIDE 20 MG TAB PO SCH (09:00)
[2023-04-13] MEDS ORDERED: CRUSHER, PILL MC ONE (09:10)
--- NOTE | 2023-04-13 09:16 | NUR ---
MD EVANS AT BEDSIDE FOR EVALUATION
[2023-04-13 09:55] VITALS: O2SAT 97
--- NOTE | 2023-04-13 10:15 | NUR ---
In ED to inquire about the patient's admitting diagnosis of Cirrhosis of the Liver. I spoke with PIO Francois that the admitting diagnosis is not related to alcohol consumption or abuse. The diagnosis is actually secondary to her Hepatitis C. She indicated there was no need to follow up with the patient at this time. I did not see the patient, but advised if there was anything needed, I could come by to see the patient.
[2023-04-13] MEDS ORDERED: PANT40EC56 PO (11:04)
[2023-04-13] MEDS ORDERED: GABA300C PO (11:12)
[2023-04-13 13:44] VITALS: O2SAT 99
[2023-04-13 16:30] VITALS: O2SAT 99
--- NOTE | 2023-04-13 16:30 | NUR ---
Patient will be admitted to care of MD AGUILAR. Admited to TELE. Will go to room 119B. Belongings list completed. Report to JAVIER RN.
--- NOTE | 2023-04-13 16:30 | NUR ---
The patient's care was reviewed and supervised by [place] [facility], RN.
--- NOTE | 2023-04-13 16:40 | NUR ---
RECEIVED PATIENT FROM ED. VITALS STABLE. PATIENT AWAKE AND AMBULATORY. DISCHARGE ORDER PRESENT. CONFIRMED WITH MD PATIENT IS FOR DISCHARGE. PATIENT DISCHARGED
[2023-04-13 17:02] VITALS: BP 99/61; PULSE 98; RESP 17; TEMP 97.1
[2023-04-21] MEDS ORDERED: ONDA-188 SL (05:02)
[2023-04-21] MEDS ORDERED: DIPH25TA53 PO (05:02)
[2023-04-21] MEDS ORDERED: CEPH-588 PO (05:02)
[2023-04-21] MEDS ORDERED: AZIT250T4 PO (05:23)
== END 2023-04-13 17:35 | disposition home or self-care (01) | DRG 203 ==
LOC: MED 21:43 → MTU 04-13 01:26
PROVIDERS: ADMIT Student in an Organized Health Care Education/Training Program; ATTEND Student in an Organized Health Care Education/Training Program
DX: R07.89 Other chest pain (principal); R18.8 Other ascites; E44.0 Moderate protein-calorie malnutrition; R65.10 Systemic inflammatory response syndrome (SIRS) of non-infectious origin without acute organ dysfunction; I11.0 Hypertensive heart disease with heart failure; I50.9 Heart failure, unspecified; K74.60 Unspecified cirrhosis of liver; B19.20 Unspecified viral hepatitis C without hepatic coma; D50.9 Iron deficiency anemia, unspecified; Z79.899 Other long term (current) drug therapy; Z68.24 Body mass index [BMI] 24.0-24.9, adult
CPT/HCPCS: 36415; 71045; 80053; 80305; 81001; 83540; 83880; 84484; 85025; 85610; 85730; 87040; 87086; 93005; 96360; 96361; 99285; Q0092